=== PATIENT | male | born 1970 | race Caucasian/White ===

== ENCOUNTER 2017-04-09 11:03 | Day surgery (SDC) | payer OTHER ==
--- NOTE | 2017-04-09 13:32 | Operative Note ---
Upper GI Endoscopy Procedure date: 04/09/17 Date of : 74 Procedure:Upper GI Endoscopy Esophagogastroduodenoscopy with cold biopsies Indications: Mr. Teague is a 46-year-old gentleman who is here for diagnostic upper endoscopy. 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 He is being followed by Dr. Dimas HIGUERA at the [facility] and Dr. Danish Gardiner his oncologist. The patient did have a PET scan in August and then again in March. His most recent PET scan showed the appearance of possible peptic ulcer disease and EGD is performed to evaluate further. The patient reports no abdominal pain, heartburn, reflux, indigestion or dyspepsia. He reports no melena. He did receive chemoradiation for the head and neck cancer. Performing Provider: Johnnie Saeed MD Referring Provider: Saud Baeza M.D./Danish Gardiner M.D./Dr. Dimas HIGUERA [facility] Sedation: Fentanyl 150 mg IV/Versed 6 mg IV Procedure: Prior to the procedure, a history and physical exam was performed, and patients medications and allergies were reviewed. The risks and benefits of the procedure and the sedation options and risks were discussed with the patient. All questions were answered and informed consent was obtained. The patient was brought to the procedure room. Patient identification and proposed procedure were verified by the physician and the nurse. The patient was placed in a left lateral decubitus position and the scope was passed under direct vision. Throughout the procedure, the patient's blood pressure, pulse, and oxygen saturations were monitored continuously. The endoscope was introduced through the mouth, and advanced to the second part of duodenum. The upper GI endoscopy was accomplished without difficulty. The patient tolerated the procedure well. Findings: The scope was passed directly into the upper esophagus and advanced to the third portion of the duodenum. The post bulbar duodenum and duodenal bulb were normal with normal mucosa and conniventes. The scope was withdrawn through a normal duodenal bulb and pylorus into the stomach. There was minimal reactive gastritis of the antrum/antritis. The remainder of the antrum, body and fundus of the stomach were grossly normal. Upon retroflexion there was a 1-2 cm hiatal hernia. 2 biopsies were taken in the antrum and along the lesser curvature for histology. The scope was then withdrawn into the esophagus. There was evidence of a serrated Z line with 2 tongues of salmon-colored mucosa that were biopsied to rule out intestinal metaplasia//short segment Harrington's esophagus. 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 There were 2 proximal esophageal inlet patches. These were biopsied. Immediate complications: None EBL (ml): 0 Impression: 1. Proximal esophageal Inlet patches 2 2. Mild esophageal glycogen acanthosis 3. 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 I will follow-up the biopsies and discuss the findings with the patient and family. I will proceed with screening colonoscopy. at [id number]
--- NOTE | 2017-04-09 13:36 | Operative Note ---
Colonoscopy ([place]) Procedure date: 04/09/17 Date of : 74 Procedure:Colonoscopy Colonoscopy with cold snare polypectomy Indications: Mr. Teague is a 46-year-old gentleman who is here for screening colonoscopy. The patient did have a colonoscopy with ne in April 2013 due to high risk ( paternal grandfather with colon cancer at ages 75). At that time, he had 3 colon polyps removed (tubular adenomas 2/sessile serrated adenoma 1). The patient does have some intermittent hemorrhoidal bleeding. He reports no abdominal pain, weight loss or change in his bowel habits. He did have squamous cell carcinoma of the head and neck with unknown primary and received chemoradiation. Performing Provider: Johnnie Saeed MD Referrring Provider: Saud Baeza M.D./Danish Gardiner M.D. Sedation: Fentanyl 200 mg IV/Versed 8 mg IV Procedure: Prior to the procedure, a history and physical exam was performed, and patient medications and allergies were reviewed. The risks and benefits of the procedure and the sedation options and risks were discussed with the patient. All questions were answered and informed consent was obtained. Patient identification and proposed procedure were verified by the physician and the nurse. The patient was placed in a left lateral decubitus position. Throughout the procedure, the patient's blood pressure, pulse, and oxygen saturations were monitored continuously. Findings: On digital rectal examination there was normal rectal tone. There were no external hemorrhoids. The colonoscope was introduced through the anal canal to the rectum and advanced to the cecum. The ileocecal valve and appendiceal orifice were identified. The scope was advanced a short distance into the ileum which appeared grossly normal. The scope was then withdrawn into the colon. There were 4 colon polyps identified in the cecum 1, ascending 2 and sigmoid 1. These ranged in size from 4-8 mm and were all removed via cold snare polypectomy. The remaining cecum, ascending, transverse, descending, sigmoid and rectum were grossly normal. There were no other mucosal abnormalities identified. Upon retroflexion within the rectum there were grade 1 internal hemorrhoids. Impressions: 1. Colonic polyps 4 2. Grade 1 internal hemorrhoids Recommendations: I will follow up the polyp pathology and recommend repeat colonoscopy again in 3 years based upon the patient's family history, polyp histology and prior history of adenomatous colon polyps. I would encourage fiber supplementation on a long-term daily maintenance basis. Complications: None EBL (ml): 0 at 1372
[2017-04-09 17:21] VITALS: BP 117/70
== END 2017-04-09 14:50 | disposition home or self-care (01) ==
LOC: SDC 11:03
PROVIDERS: Internal Medicine Gastroenterology
PROC: 0DBN8ZX Excision of Sigmoid Colon, Via Natural or Artificial Opening Endoscopic, Diagnostic (ICD-10-PCS; 2017-04-09)
PROC: 0DBH8ZX Excision of Cecum, Via Natural or Artificial Opening Endoscopic, Diagnostic (ICD-10-PCS; 2017-04-09)
PROC: 0DB58ZX Excision of Esophagus, Via Natural or Artificial Opening Endoscopic, Diagnostic (ICD-10-PCS; 2017-04-09)
PROC: 0DB78ZX Excision of Stomach, Pylorus, Via Natural or Artificial Opening Endoscopic, Diagnostic (ICD-10-PCS; 2017-04-09)
PROC: 0DB68ZX Excision of Stomach, Via Natural or Artificial Opening Endoscopic, Diagnostic (ICD-10-PCS; 2017-04-09)
PROC: 0DBK8ZX Excision of Ascending Colon, Via Natural or Artificial Opening Endoscopic, Diagnostic (ICD-10-PCS; principal; 2017-04-09 12:00)
DX: C76.0 Malignant neoplasm of head, face and neck (principal); D12.5 Benign neoplasm of sigmoid colon; D12.0 Benign neoplasm of cecum; D12.2 Benign neoplasm of ascending colon; K64.0 First degree hemorrhoids; K29.50 Unspecified chronic gastritis without bleeding; K44.9 Diaphragmatic hernia without obstruction or gangrene; L83 Acanthosis nigricans; Z86.010 Personal history of colon polyps; K21.9 Gastro-esophageal reflux disease without esophagitis; Z79.899 Other long term (current) drug therapy; Z80.0 Family history of malignant neoplasm of digestive organs